=== PATIENT | male | born 1980 | race African-American/Black ===

== ENCOUNTER 2017-11-18 20:54 | Emergency (ER) | payer OTHER ==
[~2017-11-18] VITALS: Ht 193 cm; Wt 97.7 kg
[2017-11-18] MEDS ORDERED: AUGMENTIN875 MG PO (22:42)
[2017-11-18 23:17] VITALS: BP 148/88
== END 2017-11-18 23:15 | disposition home or self-care (01) ==
LOC: EME 20:54
PROC: 3E0234Z Introduction of Serum, Toxoid and Vaccine into Muscle, Percutaneous Approach (ICD-10-PCS; principal; 2017-11-18)
DX: S80.272A Other superficial bite of left knee, initial encounter (principal); S60.571A Other superficial bite of hand of right hand, initial encounter; S60.871A Other superficial bite of right wrist, initial encounter; S70.371A Other superficial bite of right thigh, initial encounter; W54.0XXA Bitten by dog, initial encounter; Y93.02 Activity, running; Z23 Encounter for immunization
CPT/HCPCS: 99281; 99284